=== PATIENT | male | born 1975 | race African-American/Black ===

== ENCOUNTER 2019-12-01 07:06 | Emergency (ER) | payer OTHER ==
[~2019-12-01] VITALS: Ht 190.5 cm; Wt 104.9 kg
[2019-12-01] MEDS ORDERED: NEUR300C PO (07:22)
[2019-12-01] MEDS ORDERED: TIZA4TAB4 PO (07:22)
[2019-12-01] MEDS ORDERED: NS 1,000 ML IV ONE (07:45)
[2019-12-01] MEDS: MORPHINE 2 MG/ML 1ML VIAL (J2270) IV PRN ×4 (07:59→13:34)
[2019-12-01 08:13] LABS: HEMATOCRIT 47.9 % (42.0-52.0); HEMOGLOBIN 16.3 g/dl (13.5-17.5); MEAN CORPUSCULAR HEMOGLOBIN 28.8 pg (27.0-33.0); MEAN CORPUSCULAR VOLUME 84.6 fl (80.0-96.0); PLATELET COUNT, AUTOMATED 224 10^3/uL (150-450); RED BLOOD COUNT 5.66 10^6/uL (4.30-6.10); WHITE BLOOD COUNT 7.5 10^3/uL (4.0-10.0)
[2019-12-01 08:31] LABS: BLOOD UREA NITROGEN 9 MG/DL (7-18); C REACTIVE PROTEIN QUANTITATIV 0.53 MG/DL (0.00-0.30); CALCIUM LEVEL 9.3 MG/DL (8.5-10.1); CARBON DIOXIDE LEVEL 29 MEQ/L (21-32); CHLORIDE LEVEL 107 MEQ/L (98-107); GLOMERULAR FILTRATION RATE > 60.0 (>60); GLUCOSE, FASTING 112 MG/DL (70-100); POTASSIUM SERUM 4.2 MEQ/L (3.5-5.1); SODIUM LEVEL 141 MEQ/L (136-145)
[2019-12-01 08:34] LABS: ERYTHROCYTE SEDIMENTATION RATE 2 mm/hr (0-15)
--- NOTE | 2019-12-01 09:51 | ECGEPIP ---
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
--- NOTE | 2019-12-01 10:36 | REP ---
CHEST PORTABLE: REASON: Pain. FINDINGS: The technique utilized in obtaining the radiograph has magnified the cardiac silhouette and accentuated the interstitial markings. The superior mediastinal structures are midline. The cardiac silhouette is unremarkable in size, shape, and position. The diaphragmatic surfaces of the lungs are regular, and the costophrenic angles are clear. The pulmonary abarca are clear. The imaged osseous structures are intact. IMPRESSION: There is no acute cardiopulmonary disease. Electronically Signed by Alexx Hale DO 12/01/2019 10:42 A
[2019-12-01 13:40] VITALS: BP 178/106
== END 2019-12-01 13:42 | disposition short-term general hospital (02) ==
LOC: M ED 07:06
DX: G89.18 Other acute postprocedural pain (principal); R94.31 Abnormal electrocardiogram [ECG] [EKG]; Z79.899 Other long term (current) drug therapy
CPT/HCPCS: 71045; 80048; 85027; 85652; 86140; 87040; 93005; 96374; 96376; 99285; J2270

== ENCOUNTER 2019-12-21 19:00 | Emergency (ER) | payer OTHER ==
[~2019-12-21 19:00] MED LIST changes: -ISOVUE-370 76% 100ML VIAL As Ordered ONE
[2019-12-21] MEDS ORDERED: APIXABAN 5 MG TAB (ELIQUIS) ONE (21:10)
[2019-12-21] MEDS ORDERED: APIXABAN 5 MG TAB (ELIQUIS) As Ordered ONE (21:17)
[2020-01-21 10:50] LABS: DRVV SCREEN 44.3 SEC; PTT LUPUS TYPE ANTICOAG SCREEN 1.1 (0-1.2)
--- NOTE | 2020-01-30 16:40 | ECGEPIP ---
SINUS RHYTHM NONSPECIFIC T-WAVE ABNORMALITY BORDERLINE ECG SEE SCANNED DOWNTIME REPORT MTDD
[2020-02-03 17:01] LABS: INR 0.96
[2020-02-03 17:02] LABS: PARTIAL THROMBOPLASTIN TIME 26.1 SECONDS (24.2-38.5)
[2020-02-04 07:34] LABS: NT-PRO BNP 10 PG/ML (<125); TROPONIN I < 0.02 NG/ML (< 0.10)
[2020-02-04 08:17] LABS: ANTI THROMBIN 3 ANTIGEN IMMUNO See Separate Report % NORMAL; ANTI THROMBIN 3 FUNCT ACTIVITY See Separate Report % NORMAL; CARDIOLIPIN IGA ANTIBODY SEE SEPARATE REPORT; CARDIOLIPIN IGG ANTIBODY SEE SEPARATE REPORT; CARDIOLIPIN IGM ANTIBODY SEE SEPARATE REPORT; FACTOR II PROTHROMBIN GENE AN SEE SEPARATE REPORT; FACTOR V LEIDEN FOR MEDINET See Separate Report; PHOSPHOLIPIDS LEVEL SEE SEPARATE REPORT; PROTEIN C FUNCTIONAL ACTIVITY SEE SEPARATE REPORT %; PROTEIN S FUNCTIONAL ACTIVITY SEE SEPARATE REPORT %
== END 2019-12-21 21:25 | disposition home or self-care (01) ==
LOC: M ED 19:00
DX: I26.99 Other pulmonary embolism without acute cor pulmonale (principal); Z79.01 Long term (current) use of anticoagulants
CPT/HCPCS: 36415; 71275; 81240; 83880; 84311; 84484; 85300; 85301; 85303; 85305; 85610; 85730; 86147; 93005; 99285; Q9967

== ENCOUNTER → 2019-12-21 | Outpatient (CLI) | payer OTHER ==
[~2019-12-21] MED LIST: ISOVUE-370 76% 100ML VIAL As Ordered ONE; NEUR300C PO; TIZA4TAB4 PO
== END ==
LOC: M RAD 15:45
PROVIDERS: ATTEND Internal Medicine Cardiovascular Disease
DX: R06.02 Shortness of breath (principal)

== ENCOUNTER → 2019-12-25 | Outpatient (CLI) | payer OTHER ==
--- NOTE | 2020-01-25 15:11 | SLEEPHOME ---
DATE: 12/25/2019 Diagnostic home sleep testing was performed due to concern for the obstructive sleep apnea syndrome. For testing, a nocturnal T4 respiratory monitoring device was used. Continuous record was made of pulse, oxygen saturation, air flow, chest and abdominal strain, and body position. There was 9 hours and 59 minutes of data reviewed. There was 9 hours and 17 minutes marked as time in bed. During the interval marked time in bed, there were 136 respiratory events identified of 10 seconds in duration or greater for a respiratory event index of 14.6. The events were obstructive. Baseline pulse rate 78, pulse rate range 52-124, baseline saturation 96%. Saturations fell to 86%. Testing was performed in both the supine and non-supine positions. IMPRESSION: Abnormal home sleep testing with repetitive respiratory events and oxygen desaturations to 86% with a respiratory event index of 14.6 is consistent with obstructive sleep apnea syndrome. RECOMMENDATION: The patient should be encouraged to undergo formal sleep evaluation MTDD
== END ==
LOC: M SLEEP HO 09:42
PROVIDERS: ATTEND Internal Medicine Cardiovascular Disease
DX: R06.83 Snoring (principal)

== ENCOUNTER → 2020-03-25 | Outpatient (CLI) | payer OTHER ==
[2020-03-26 10:20] LABS: DRVV SCREEN 39.8 SEC
[2020-03-27 05:08] LABS: BETA-2 GLYCOPROTEIN I ABY IGA <9 (0-25); BETA-2 GLYCOPROTEIN I ABY IGG <9 (0-20); BETA-2 GLYCOPROTEIN I ABY IGM <9 (0-32)
== END ==
LOC: M PLALAB 10:36
PROVIDERS: ATTEND Internal Medicine Pulmonary Disease
DX: I26.99 Other pulmonary embolism without acute cor pulmonale (principal)

== ENCOUNTER → 2020-04-04 | Outpatient (CLI) | payer OTHER ==
--- NOTE | 2020-04-08 07:15 | SLEEPCENT ---
DATE: 04/04/2020 ORDERED BY: Patricia Justin MD Nocturnal polysomnography was performed for the titration of pressure therapy in this patient with a clinical diagnosis of obstructive sleep apnea syndrome confirmed by home testing, revealing respiratory event index of 14.6. For testing the patient was fit with a ResMed Mirage FX nasal mass of standard size, 4 cm of water pressure were applied to the circuit, and the lights were extinguished. 7 hours and 54 minutes of data were reviewed. There were 425 minutes of sleep identified. Sleep latency was normal at 19 minutes. REM latency was short at 63 minutes. Sleep architecture was good with five REM cycles noted. Overall sleep efficiency was 90.9%. The electrocardiogram showed a sinus rhythm with an average heart rate of 80 beats per minute. EEG showed normal waveforms for wake and sleep. Respiratory events were best palliated with CPAP at a pressure of +9 and remaining measures of sleep physiology were normal. IMPRESSION: Obstructive sleep apnea syndrome (G47.33). RECOMMENDATION: Nightly use of pressure therapy 9 cm of water. MTDD
== END ==
LOC: M SLEEP 20:00
PROVIDERS: ATTEND Internal Medicine Pulmonary Disease
DX: G47.33 Obstructive sleep apnea (adult) (pediatric) (principal)

== ENCOUNTER → 2020-05-22 | Outpatient (CLI) | payer OTHER ==
--- NOTE | 2020-05-22 15:30 | PFTRPT ---
Height: 73.00 Inches Weight: 243.00 Lbs BSA: 2.34 Diagnosis: R94.2 DATE: 05/22/2020 ORDERED BY: Patricia Justin MD Pre and post bronchodilator studies have excellent technical quality. Forced vital capacity is normal. FEV1 is in proportion. Obstructive index is therefore normal. Expiratory limit of the flow-volume loop is normal. No significant bronchodilator response is identified. Total lung capacity is normal. Residual volume is proportion. Diffusing capacity although reduced is appropriate for alveolar volume. Hemoglobin is acceptable at 14.5 Airway resistance and conductance are normal. IMPRESSION: Mild reduction in the absolute diffusion capacity. Please correlate clinically. MTDD
== END ==
LOC: M CARPUL 09:34
PROVIDERS: ATTEND Internal Medicine Pulmonary Disease
DX: R94.2 Abnormal results of pulmonary function studies (principal)

== ENCOUNTER → 2020-09-09 | Outpatient (CLI) | payer OTHER ==
--- NOTE | 2020-09-11 14:24 | ECHO ---
DATE OF PROCEDURE: 09/09/2020 Age: 44 Gender: Male Height: 190 cm Weight: 108.4 kg REFERRING PHYSICIAN: Dr. Patricia Justin. INDICATION: Pulmonary embolism. MEASUREMENTS: 2D Measurements: Left atrium 3.7 cm Interventricular septum 1.25 cm Posterior wall 1.31 cm Left ventricle diastole 4.5 cm Aortic root 3.0 cm Left atrial volume index 16 cm Doppler Measurements: No aortic stenosis No aortic regurgitation Aortic valve velocity 100 cm/s LVOT velocity 67.9 cm/s Trace mitral regurgitation Mitral E velocity 62.1 cm/s Mitral A velocity 59.1 cm/s Mitral deceleration time 169 msec Trace tricuspid regurgitation Estimated right ventricle systolic pressure 23-28 mmHg Estimated right atrial pressure of 5-10 mmHg Trace pulmonic regurgitation Pulmonary artery acceleration time 158 msec MITRAL ANNULAR TISSUE DOPPLER E prime septal 8.7 cm/s, E prime lateral 10.7 cm/s DESCRIPTION: Rhythm was sinus. Image quality was good. No pericardial effusion. Technically difficult subcostal acoustic window. CONCLUSIONS: 1. Normal pulmonary artery systolic pressure and estimated right ventricle systolic pressure. Normal right ventricle size and systolic function. Central venous pressure could not be estimated as inferior vena cava could not be adequately visualized due to technically difficult subcostal window. 2. Mild concentric left ventricle hypertrophy. Normal regional LV wall motion and wall thickening. Normal LV systolic function. LVEF 65% by visual estimate. Normal left ventricle peak systolic longitudinal strain pattern. Normal LV diastolic function. 3. Otherwise normal appearing echocardiogram and Doppler findings. MTDD
== END ==
LOC: M CARPUL 08:40
PROVIDERS: ATTEND Internal Medicine Pulmonary Disease
DX: I26.99 Other pulmonary embolism without acute cor pulmonale (principal)

== ENCOUNTER 2021-02-05 18:12 | Emergency (ER) | payer OTHER ==
[~2021-02-05] VITALS: Ht 188 cm; Wt 101.4 kg
[2021-02-06 01:38] LABS: BASO # 0.1 10^3/uL (0.0-0.2); BASO % 0.6 % (0.0-1.0); EOS # 0.3 10^3/uL (0.0-0.5); EOS % 3.3 % (0.0-3.0); HEMATOCRIT 44.4 % (42.0-52.0); HEMOGLOBIN 14.8 g/dl (13.5-17.5); LYMPH # 5.1 10^3/uL (1.5-5.0); LYMPH % 64.7 % (24.0-44.0); MEAN CORPUSCULAR HEMOGLOBIN 29.2 pg (27.0-33.0); MEAN CORPUSCULAR HGB CONC 33.3 g/dl (32.0-36.5); MEAN CORPUSCULAR VOLUME 87.7 fl (80.0-96.0); MONO # 0.5 10^3/uL (0.0-0.8); MONO % 6.3 % (2.0-8.0); PLATELET COUNT, AUTOMATED 222 10^3/uL (150-450); RED BLOOD COUNT 5.06 10^6/uL (4.30-6.10); WHITE BLOOD COUNT 7.8 10^3/uL (4.0-10.0)
[2021-02-06 02:16] LABS: ALBUMIN 3.8 GM/DL (3.2-5.2); ALT/SGPT 38 U/L (12-78); BILIRUBIN,DIRECT < 0.1 MG/DL (0.0-0.2); BILIRUBIN,TOTAL 0.3 MG/DL (0.2-1.0); BLOOD UREA NITROGEN 10 MG/DL (7-18); CALCIUM LEVEL 8.7 MG/DL (8.5-10.1); CARBON DIOXIDE LEVEL 27 MEQ/L (21-32); CHLORIDE LEVEL 111 MEQ/L (98-107); CK-MB VALUE MASS 2.7 NG/ML (<3.6); CPK CREATINE PHOSPHOKINASE 389 U/L (39-308); GLOMERULAR FILTRATION RATE > 60.0 (>60); GLUCOSE, FASTING 99 MG/DL (70-100); MB/CK RELATIVE INDEX 0.69 (< OR =4); NT-PRO BNP 8 PG/ML (<125); POTASSIUM SERUM 5.1 MEQ/L (3.5-5.1); SODIUM LEVEL 142 MEQ/L (136-145); TOTAL PROTEIN 7.1 GM/DL (6.4-8.2); TROPONIN I < 0.02 NG/ML (< 0.10)
--- NOTE | 2021-02-06 02:21 | REPVR ---
PROCEDURE INFORMATION: Exam: XR Chest Exam date and time: 02/06/2021 1:18 AM Age: 45 years old Clinical indication: Other: Dyspnea; Additional info: Dyspnea/cough TECHNIQUE: Imaging protocol: XR of the chest. Views: 1 view. COMPARISON: No relevant prior studies available. FINDINGS: Lungs: Unremarkable. No consolidation. Pleural spaces: Unremarkable. No pleural effusion. No pneumothorax. Heart/Mediastinum: Unremarkable. No cardiomegaly. Bones/joints: Status post cervical fusion. IMPRESSION: No acute infiltrates. Electronically signed by: Romi Dooley On 02/06/2021 02:20:37 AM
[2021-02-06] MEDS ORDERED: ISOVUE-370 76% 100ML VIAL As Ordered ONE (03:21)
--- NOTE | 2021-02-06 03:56 | REPVR ---
PROCEDURE INFORMATION: Exam: CTA Chest With Contrast Exam date and time: 02/06/2021 3:16 AM Age: 45 years old Clinical indication: Shortness of breath; Additional info: R/O pe TECHNIQUE: Imaging protocol: Computed tomography angiography of the Chest. 3D rendering (Not supervised by radiologist): MIP and/or 3D reconstructed images were created by the technologist. Radiation optimization: All CT scans at this facility use at least one of these dose optimization techniques: automated exposure control; mA and/or kV adjustment per patient size (includes targeted exams where dose is matched to clinical indication); or iterative reconstruction. Contrast material: ISO; Contrast volume: 75 ml; Contrast route: INTRAVENOUS (IV); COMPARISON: CR PORTABLE CHEST X-RAY 02/06/2021 1:12 AM FINDINGS: Pulmonary arteries: Normal. No pulmonary emboli. Aorta: Suboptimal contrast opacification of the aorta. No aortic aneurysm. No definite aortic dissection. Trachea: Visualized trachea is unremarkable. Bronchial tree: Diffuse mild bronchial wall thickening. Lungs: Dependent atelectasis in the lung. No acute consolidation. Pleural spaces: Unremarkable. No pneumothorax. No pleural effusion. Heart: Unremarkable. No cardiomegaly. No pericardial effusion. Lymph nodes: Unremarkable. No enlarged lymph nodes. Liver: Small subcapsular fat in the dome of the liver which appears benign. Stomach: Visualized stomach is unremarkable. Bones/joints: Status post anterior cervical fusion. No acute fracture. Soft tissues: Unremarkable. IMPRESSION: 1. Negative for pulmonary emboli. 2. Diffuse mild bronchial wall thickening. Suspect mild bronchitis. Electronically signed by: Romi Dooley On 02/06/2021 03:56:09 AM
[2021-02-06 04:00] VITALS: BP 131/69
--- NOTE | 2021-02-06 19:20 | ECGEPIP ---
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
== END 2021-02-06 04:28 | disposition home or self-care (01) ==
LOC: M ED 18:12
DX: J20.9 Acute bronchitis, unspecified (principal)
CPT/HCPCS: 36415; 71045; 71275; 80048; 80076; 82550; 82553; 83880; 84484; 85025; 87798; 93005; 93041; 94760; 99285; Q9967

== ENCOUNTER → 2021-12-04 | Outpatient (CLI) | payer OTHER ==
[~2021-12-04] MED LIST changes: +PROHANCE 279.3MG/ML 15ML VIAL As Ordered ONE; +PROHANCE 279.3MG/ML 5ML VIAL As Ordered ONE; +TIZA10TA PO; -TIZA4TAB4 PO
== END ==
LOC: M RAD 15:30
PROVIDERS: ATTEND Student in an Organized Health Care Education/Training Program
DX: G43.701 Chronic migraine without aura, not intractable, with status migrainosus (principal); Z87.820 Personal history of traumatic brain injury
CPT/HCPCS: 70553; A9576

== ENCOUNTER → 2021-12-11 | Outpatient (CLI) | payer OTHER ==
[~2021-12-11] MED LIST changes: -PROHANCE 279.3MG/ML 15ML VIAL As Ordered ONE; -PROHANCE 279.3MG/ML 5ML VIAL As Ordered ONE
== END ==
LOC: M RAD 08:12
PROVIDERS: ATTEND Internal Medicine
DX: M54.50 Low back pain, unspecified (principal); M25.561 Pain in right knee; M25.562 Pain in left knee

== ENCOUNTER → 2024-09-03 | Outpatient (CLI) | payer OTHER | LOC: M PLAIMG 14:58 | PROVIDERS: ATTEND Internal Medicine | DX: M54.12 Radiculopathy, cervical region (principal) ==